=== PATIENT | male | born 1965 | race Caucasian/White ===

== ENCOUNTER 2017-06-20 07:24 | Day surgery (SDC) | payer OTHER ==
[~2017-06-20] VITALS: Ht 188 cm; Wt 158.2 kg
[2017-06-20] MEDS ORDERED: SODIUM CHLORIDE 0.9% 1,000 ML IV ONE (08:00)
[2017-06-20] MEDS ORDERED: ATOR40TA28 PO (08:09)
[2017-06-20] MEDS ORDERED: FURO80 PO (08:09)
[2017-06-20] MEDS ORDERED: AMLO-511 PO (08:09)
[2017-06-20] MEDS ORDERED: CARV25 PO (08:09)
[2017-06-20] MEDS ORDERED: FLUT16H NASAL (08:09)
[2017-06-20] MEDS ORDERED: INSLAN SQ (08:09)
[2017-06-20] MEDS ORDERED: INSU100V SQ (08:09)
[2017-06-20] MEDS ORDERED: EPLE25TA10 PO (08:09)
[2017-06-20] MEDS ORDERED: ASPI81 PO (08:09)
[2017-06-20] MEDS ORDERED: EXEN2PEN SQ (08:09)
[2017-06-20] MEDS ORDERED: PROPOFOL 1% 20 ML VIAL IVP ONE (12:00)
== END 2017-06-20 12:10 | disposition home or self-care (01) ==
LOC: SURGERY 07:24
PROVIDERS: ATTEND Internal Medicine Gastroenterology
DX: Z12.11 Encounter for screening for malignant neoplasm of colon (principal); K64.8 Other hemorrhoids; I12.9 Hypertensive chronic kidney disease with stage 1 through stage 4 chronic kidney disease, or unspecified chronic kidney disease; N18.3 Chronic kidney disease, stage 3 (moderate); E78.5 Hyperlipidemia, unspecified; E66.01 Morbid (severe) obesity due to excess calories; I87.2 Venous insufficiency (chronic) (peripheral); E11.22 Type 2 diabetes mellitus with diabetic chronic kidney disease; Z79.4 Long term (current) use of insulin; Z68.41 Body mass index [BMI] 40.0-44.9, adult; Z86.19 Personal history of other infectious and parasitic diseases; Z79.82 Long term (current) use of aspirin; Z98.890 Other specified postprocedural states; Z79.899 Other long term (current) drug therapy
CPT/HCPCS: 45378; 93005; J2704